=== PATIENT | male | born 1970 | race Caucasian/White ===

== ENCOUNTER 2020-02-08 18:11 | Emergency (ER) | payer MEDICAID ==
[~2020-02-08] VITALS: Ht 182.9 cm; Wt 72.7 kg
[2020-02-08 18:19] VITALS: BP 145/86
--- NOTE | 2020-02-08 18:30 | NUR ---
Pt has refused all treatment. I gave him a sweatshirt to put on as he came in hospital for behavioral medicine. He is AOx4 and has no c/o anything and talking in full sentences and no respiratory issues.
== END 2020-02-08 18:36 | disposition left against medical advice (07) ==
LOC: ER 18:12
DX: T40.1X1A Poisoning by heroin, accidental (unintentional), initial encounter (principal); Z59.0 Homelessness; Y92.89 Other specified places as the place of occurrence of the external cause
CPT/HCPCS: 99283

== ENCOUNTER 2021-04-25 14:40 | Emergency (ER) | payer MEDICAID ==
[~2021-04-25] VITALS: Ht 182.9 cm; Wt 72.7 kg
[2021-04-25 14:49] VITALS: BP 122/78
[2021-04-25] MEDS ORDERED: DOXY100T56 PO (14:49)
== END 2021-04-25 15:15 | disposition home or self-care (01) ==
LOC: ER 14:40
DX: L97.919 Non-pressure chronic ulcer of unspecified part of right lower leg with unspecified severity (principal); F11.90 Opioid use, unspecified, uncomplicated; Z59.0 Homelessness; Z79.2 Long term (current) use of antibiotics
CPT/HCPCS: 99283

== ENCOUNTER 2021-10-26 22:03 | Emergency (ER) | payer MEDICAID ==
[~2021-10-26] VITALS: Ht 185.4 cm; Wt 72.7 kg
[2021-10-26 22:05] VITALS: BP 132/81
[2021-10-26] MEDS ORDERED: clindamycin 150mg capsule PO ONE (22:30)
[2021-10-26] MEDS ORDERED: CLIN300C63 PO (22:33)
== END 2021-10-26 23:54 | disposition left against medical advice (07) ==
LOC: ER 22:03
DX: L03.115 Cellulitis of right lower limb (principal); N50.89 Other specified disorders of the male genital organs; R00.0 Tachycardia, unspecified; L97.919 Non-pressure chronic ulcer of unspecified part of right lower leg with unspecified severity; F11.90 Opioid use, unspecified, uncomplicated; Z59.00 Homelessness unspecified; Z79.2 Long term (current) use of antibiotics
CPT/HCPCS: 99283

== ENCOUNTER 2022-05-28 21:20 | Emergency (ER) | payer MEDICAID ==
[~2022-05-28] VITALS: Ht 185.4 cm; Wt 72.0 kg
[2022-05-28 21:54] VITALS: BP 131/63
[2022-05-29] MEDS ORDERED: ibuprofen tablet 400 MG TABLET PO ONE (07:05)
[2022-05-29] MEDS ORDERED: acetaminophen 325mg tablet PO ONE (07:05)
== END 2022-05-29 08:52 | disposition home or self-care (01) ==
LOC: ER 21:21
DX: S81.801A Unspecified open wound, right lower leg, initial encounter (principal); S81.802A Unspecified open wound, left lower leg, initial encounter; G89.29 Other chronic pain; F11.90 Opioid use, unspecified, uncomplicated; Z59.00 Homelessness unspecified; X58.XXXA Exposure to other specified factors, initial encounter; Y93.89 Activity, other specified; Y92.89 Other specified places as the place of occurrence of the external cause; Y99.8 Other external cause status
CPT/HCPCS: 99284

== ENCOUNTER 2022-07-29 07:50 | Emergency (ER) | payer MEDICAID ==
[~2022-07-29] VITALS: Ht 185.4 cm; Wt 72.7 kg
[2022-07-29 09:41] VITALS: BP 138/87
== END 2022-07-29 09:43 ==
LOC: ER 07:50
DX: I83.009 Varicose veins of unspecified lower extremity with ulcer of unspecified site (principal); L97.802 Non-pressure chronic ulcer of other part of unspecified lower leg with fat layer exposed; F17.200 Nicotine dependence, unspecified, uncomplicated; F11.90 Opioid use, unspecified, uncomplicated; Z59.00 Homelessness unspecified
CPT/HCPCS: 99283; A6223; A6258

== ENCOUNTER 2023-04-20 10:10 | Emergency (ER) | payer MEDICAID ==
[~2023-04-20] VITALS: Ht 190.5 cm; Wt 36.9 kg
[2023-04-20 10:59] LABS: BASOPHILS % (AUTO) 0.1 % (0-1); EOSINOPHILS % (AUTO) 0 % (0-6); LYMPHOCYTES # (AUTO) 1.2 X10'3 (1.1-4.8); LYMPHOCYTES % (AUTO) 19.4 % (21-51); MONOCYTES # (AUTO) 0.7 X10'3 (0-0.9); MONOCYTES % (AUTO) 11.4 % (2-12); NEUTROPHILS # (AUTO) 4.2 X10'3 (1.8-7.7); NEUTROPHILS % (AUTO) 69.1 % (42-75); PLATELET COUNT 366 X10'3 (140-440); WHITE BLOOD COUNT 6.1 X10'3 (4.5-11.0)
[2023-04-20 11:08] VITALS: TEMP 98.7
[2023-04-20 11:10] LABS: RED BLOOD COUNT 4.67 X10'6 (4.70-6.10)
[2023-04-20 11:11] LABS: HEMOGLOBIN 9.4 g/dl (14.0-17.9); MEAN CORPUSCULAR HEMOGLOBIN 20.1 PG (27.0-31.0); MEAN CORPUSCULAR HGB CONC 32.3 g/dL (33.0-36.5); MEAN CORPUSCULAR VOLUME 62.2 FL (78-98); RED CELL DISTRIBUTION WIDTH 18.4 % (11.5-14.5)
[2023-04-20 11:25] LABS: ALANINE AMINOTRANSFERASE 41 U/L (12-78); ALBUMIN 2.4 G/DL (3.4-5.0); ALBUMIN/GLOBULIN RATIO 0.5 (1.1-1.5); ALKALINE PHOSPHATASE 262 IU/L (46-116); ANION GAP 9 (8-16); ASPARTATE AMINO TRANSFERASE 22 U/L (10-37); BILIRUBIN,TOTAL 0.2 MG/DL (0.1-1.0); BLOOD UREA NITROGEN 36 MG/DL (7-18); BUN/CREATININE RATIO 63.2 (10.0-20.0); CALCIUM 8.7 MG/DL (8.5-10.1); CHLORIDE 101 MMOL/L (99-107); CREATININE 0.57 MG/DL (0.60-1.10); ETHANOL < 0.010 GM/DL (0.0-0.010); GLUCOSE 91 MG/DL (70-104); POTASSIUM 4.4 MMOL/L (3.5-5.1); SODIUM 134 MMOL/L (135-145); TOTAL PROTEIN 7.2 G/DL (6.4-8.2); eGFR > 90 ML/MIN
[2023-04-20 11:34] LABS: PLATELET ESTIMATE NORMAL
[2023-04-20 11:35] LABS: ANISOCYTOSIS 2+; ELLIPTOCYTES 1+; MICROCYTOSIS 2+
[2023-04-20 11:36] LABS: HYPOCHROMASIA 1+
[2023-04-20] MEDS ORDERED: buprenorphine/naloxone 8MG-2MG SUBlingual film SL SCH (12:00)
--- NOTE | 2023-04-20 12:05 | NUR ---
PT REFUSING TO CHNAGE INTO [employer] [employer]U[facility] FOR NURSE.
--- NOTE | 2023-04-20 12:19 | NUR ---
Received order for consult. Met with patient in regards to substance use and to see if patient was interested in resources for treatment options. Patient is interested in starting Suboxone. Patient last used fentanyl 4 days ago. I spoke with Keturah Clark and she will start patient on Suboxone. I will bridge patient to [facility] and give him my card to call me with any questions.
[2023-04-20] MEDS ORDERED: PANT40TA54 PO (12:33)
[2023-04-20] MEDS ORDERED: FERR-106 PO (12:33)
--- NOTE | 2023-04-20 15:47 | NUR ---
PACKET FAXED TO [facility].
--- NOTE | 2023-04-20 16:24 | NUR ---
MELISSA YUEN FROM [facility] CALLED AND WOULD LIKE TO BE NOTIFIED WHEN AND IF THE PT IS DISCHARGED TO PLACEMENT. [phone]
[2023-04-20 17:37] VITALS: BP 136/94; PULSE 79; RESP 18; O2SAT 99
--- NOTE | 2023-04-20 17:38 | NUR ---
PT STILL CURRENTLY REFUSING TO CHNAGE CLOHTES. PT DID LET NURSE TAKE VITALS.
--- NOTE | 2023-04-20 18:25 | NUR ---
[facility] to [facility] in the morning.
[2023-04-20 20:58] LABS: URINE AMPHETAMINE SCREEN NEGATIVE (Neg); URINE BARBITUATE SCREEN NEGATIVE (Neg); URINE BENZODIAZEPINES SCREEN NEGATIVE (Neg); URINE CANNABINOID SCREEN NEGATIVE (Neg); URINE COCAINE SCREEN NEGATIVE (Neg); URINE METHADONE SCREEN NEGATIVE (Neg); URINE OPIATE SCREEN POSITIVE (Neg); URINE PHENCYCLIDINE SCREEN NEGATIVE (Neg)
--- NOTE | 2023-04-20 20:58 | NUR ---
pt [id number] cedeno dc'd pt. pt transfered into wheel chair on his own and left the ed with out paperwork yelling profanities to staff and security all the way out the er doors.
== END 2023-04-20 21:02 | disposition admitted as inpatient to this hospital (09) ==
LOC: ER 10:10
DX: R62.7 Adult failure to thrive (principal); Z20.822 Contact with and (suspected) exposure to COVID-19; R64 Cachexia; R13.10 Dysphagia, unspecified; F19.20 Other psychoactive substance dependence, uncomplicated; Z79.899 Other long term (current) drug therapy; Z56.0 Unemployment, unspecified
CPT/HCPCS: 36415; 80053; 80305; 80320; 85008; 85025; 87811; 99285; C2617